=== PATIENT | male | born 1985 | race Caucasian/White ===

== ENCOUNTER → 2020-03-01 07:43 | Outpatient (BNVA) | payer MEDICARE, MEDICAID, SELFPAY | PROVIDERS: Visit Provider Nurse Practitioner Psychiatric/Mental Health | DX: F25.0 Schizoaffective disorder, bipolar type (principal); F60.2 Antisocial personality disorder; F10.21 Alcohol dependence, in remission; F12.21 Cannabis dependence, in remission; F15.21 Other stimulant dependence, in remission; Z87.820 Personal history of traumatic brain injury; F17.210 Nicotine dependence, cigarettes, uncomplicated; F41.1 Generalized anxiety disorder | CPT/HCPCS: 99213 ==

== ENCOUNTER → 2020-03-29 08:21 | Outpatient (BNVA) | payer MEDICARE, MEDICAID, SELFPAY | PROVIDERS: Visit Provider Nurse Practitioner Psychiatric/Mental Health | DX: F25.0 Schizoaffective disorder, bipolar type (principal); F60.2 Antisocial personality disorder; F10.21 Alcohol dependence, in remission; F12.21 Cannabis dependence, in remission; F15.21 Other stimulant dependence, in remission; Z87.820 Personal history of traumatic brain injury; F17.210 Nicotine dependence, cigarettes, uncomplicated | CPT/HCPCS: 99213 ==

== ENCOUNTER 2020-06-13 10:50 | Emergency (ER) | payer MEDICARE, MEDICAID, SELFPAY ==
[2020-06-13 11:00] VITALS: BP 126/84; PULSE 68; RESP 18; TEMP 36.4; O2SAT 97; BMI 26.3
--- NOTE | 2020-06-13 11:15 | XRR_ITS ---
PROCEDURE INFORMATION: Exam: XR Right Foot Complete Exam date and time: 06/13/2020 11:32 AM Age: 34 years old Clinical indication: Injury or trauma; Injury history: Kicking a ball and hit ground with big toe; Initial encounter; Blunt trauma; Foot; Right; Prior surgery TECHNIQUE: Imaging protocol: XR Right foot. Views: 3 or more views. COMPARISON: No relevant prior studies available. FINDINGS: Bones/joints: Suspected nondisplaced fracture involving the proximal aspect of the 1st distal phalanx. Clinical correlation recommended. Surgical hardware in the distal tibia and fibula. Soft tissues: Mild soft tissue swelling about the great toe. Well corticated 3 mm osteophytic density adjacent to the distal aspect of the 1st proximal phalanx. XR/XR foot RT min 3V* [id number] IMPRESSION: Suspected nondisplaced fracture involving the proximal aspect of the 1st distal phalanx. Clinical correlation recommended.
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
[2020-06-13 12:41] VITALS: BP 120/80; PULSE 79; RESP 16; O2SAT 96
== END 2020-06-13 12:41 | disposition home or self-care (01) ==
PROVIDERS: Emergency Provider Nurse Practitioner Family
DX: S99.921A Unspecified injury of right foot, initial encounter (principal); W22.09XA Striking against other stationary object, initial encounter; F17.210 Nicotine dependence, cigarettes, uncomplicated
CPT/HCPCS: 12345; 73630; 99281; 99282; 99283; A6446

== ENCOUNTER → 2020-07-27 10:34 | Outpatient (BNVA) | payer MEDICARE, MEDICAID, SELFPAY | PROVIDERS: Visit Provider Nurse Practitioner Psychiatric/Mental Health | DX: F25.0 Schizoaffective disorder, bipolar type (principal); F60.2 Antisocial personality disorder; F10.21 Alcohol dependence, in remission; F12.21 Cannabis dependence, in remission; F15.21 Other stimulant dependence, in remission; Z87.820 Personal history of traumatic brain injury; F17.210 Nicotine dependence, cigarettes, uncomplicated | CPT/HCPCS: 99214 ==

== ENCOUNTER → 2020-08-24 08:11 | Outpatient (BNVA) | payer MEDICARE, MEDICAID, SELFPAY | PROVIDERS: Visit Provider Nurse Practitioner Psychiatric/Mental Health | DX: F25.0 Schizoaffective disorder, bipolar type (principal); F60.2 Antisocial personality disorder; F10.21 Alcohol dependence, in remission; F12.21 Cannabis dependence, in remission; F15.21 Other stimulant dependence, in remission; Z87.820 Personal history of traumatic brain injury; F41.1 Generalized anxiety disorder | CPT/HCPCS: 99214 ==

== ENCOUNTER → 2020-09-21 09:20 | Outpatient (BNVA) | payer MEDICARE, MEDICAID, SELFPAY | PROVIDERS: Visit Provider Nurse Practitioner Psychiatric/Mental Health | DX: F25.0 Schizoaffective disorder, bipolar type (principal); F60.2 Antisocial personality disorder; F10.21 Alcohol dependence, in remission; F12.21 Cannabis dependence, in remission; F15.21 Other stimulant dependence, in remission; Z87.820 Personal history of traumatic brain injury; F17.210 Nicotine dependence, cigarettes, uncomplicated; F41.1 Generalized anxiety disorder | CPT/HCPCS: 99213 ==

== ENCOUNTER → 2021-02-26 08:08 | Outpatient (BNVA) | payer MEDICARE, MEDICAID, SELFPAY | PROVIDERS: Visit Provider Nurse Practitioner Psychiatric/Mental Health | DX: F25.0 Schizoaffective disorder, bipolar type (principal); F60.2 Antisocial personality disorder; F10.21 Alcohol dependence, in remission; F12.21 Cannabis dependence, in remission; F15.21 Other stimulant dependence, in remission; Z87.820 Personal history of traumatic brain injury; F17.210 Nicotine dependence, cigarettes, uncomplicated; Z79.899 Other long term (current) drug therapy | CPT/HCPCS: 99214 ==

== ENCOUNTER → 2021-04-04 08:11 | Outpatient (BNVA) | payer MEDICARE, MEDICAID, SELFPAY | PROVIDERS: Visit Provider Nurse Practitioner Psychiatric/Mental Health | DX: F25.0 Schizoaffective disorder, bipolar type (principal); F60.2 Antisocial personality disorder; F12.20 Cannabis dependence, uncomplicated; F10.21 Alcohol dependence, in remission; F15.21 Other stimulant dependence, in remission; Z87.820 Personal history of traumatic brain injury; F17.210 Nicotine dependence, cigarettes, uncomplicated | CPT/HCPCS: 99214 ==

== ENCOUNTER 2025-09-15 12:42 | Inpatient (IN) | payer MEDICARE, SELFPAY ==
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
[2025-09-15 12:45] VITALS: BP 145/91; PULSE 120; RESP 18; TEMP 36.9; O2SAT 99; BMI 24.3
--- OUTSIDE RECORDS SUMMARY | 2025-09-15 13:02 | XMS_ITS | Clinical Summary ---
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 2 Active propranoloL (Inderal) 10 mg tablet Take 10 mg by mouth 1 (one) time each day. 2 Active HYDROcodone-acetami nophen (Jackson) 5-325 mg tablet Take 1 tablet by mouth every 6 (six) hours if needed for severe pain (7-10) for up to 6 doses. 10 tablet 2 Active Social History Tobacco Use Types Packs/Day Years Used Date Smoking Tobacco: Every Day Smokeless Tobacco: Never Sex and Gender Information Value Date Recorded Sex Assigned at Not on file Legal Sex Male 10:38 AM CDT Gender Identity Not on file Sexual Orientation Not on file Last Filed Vital Signs Vital Sign Reading Time Taken Comments Blood Pressure 119/69 02/28/2022 10:41 AM CDT Pulse 68 02/28/2022 10:41 AM CDT Temperature 36.8 C (98.2 F) 02/28/2022 10:41 AM CDT Respiratory Rate 18 02/28/2022 10:41 AM CDT Oxygen Saturation 100% 02/28/2022 10:41 AM CDT Inhaled Oxygen Concentration - - Weight 83.9 kg (185 lb) 02/28/2022 10:41 AM CDT Height 182.9 cm (6') 02/28/2022 10:41 AM CDT Body Mass Index 25.09 02/28/2022 10:41 AM CDT Plan of Treatment Health Maintenance Due Date Last Done Comments Lipid Panel 1984 MMR Vaccines (1 of 1 - Stand kiran series) 1985 Varicella Vaccines (1 of 2 - 13+ 2-dose series) 1997 Depression Screening 2002 Social Drivers of Health (SDoH) 2002 Hepatitis B Vaccines (1 of 3 - 19+ 3-dose series) 2003 DTaP,Tdap,and Td Vaccines (2 - Td or Tdap) 03/23/2008 02/24/2008 HPV Vaccines (1 - 3-dose SCD M series) 2011 COVID-19 Vaccine (1 - 2023-2 5 season) 2025 Influenza Vaccine (#1) 2025 Pneumococcal Vaccine: 50+ Ye ars (1 of 1 - PCV) 2034 Zoster Vaccines (1 of 2) 2034 RSV Vaccines (1 - 1-dose 75+ series) 2059 HIB Vaccines Aged Out No longer eligi ble based on patient's age to complete this topic Hepatitis A Vaccines Aged Out No long er eligible based on patient's age to complete this topic IPV Vaccines Aged Out No longer eligi ble based on patient's age to complete this topic Meningococcal B Vaccine Aged Out No l onger eligible based on patient's age to complete this topic Meningococcal Vaccine Aged Out No trent elgin eligible based on patient's age to complete this topic Pneumococcal Vaccine Aged Out No long er eligible based on patient's age to complete this topic Rotavirus Vaccines Aged Out No longer eligible based on patient's age to complete this topic Insurance [employer] MEDICARE HMO [facility]
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
--- OUTSIDE RECORDS SUMMARY | 2025-09-15 13:03 | XMS_ITS | Clinical Summary ---
Author Organization [facility] Address [address] [place] [address] Phone Care Team Providers Care Section Beamer Name Role Phone Unavailable Primary Care Provider Unavailabl e Allergies No known active allergies Medications divalproex delayed release (DEPAKOTE) 500 mg Tablet, Delayed Release (E.C.) Take 500 mg by mouth. One tab AM, two tabs PM Active OLANZapine (ZYPREXA) 15 mg tablet Take 15 mg by mouth daily at bedtime. Active QUEtiapine (SEROQUEL) 25 mg tablet Take 25 mg by mouth 3 times daily as needed. anxiety Active tiZANidine (ZANAFLEX) 4 mg Tablet Take 1 Tablet (4 mg) by mouth every 8 hours as needed for Spasm. 30 Tablet 0 07/31/2016 Active traMADol-acetam inophen (ULTRACET) 37.5-325 mg tablet TAKE 1-2 TABLETS BY MOUTH EVERY 8 HOURS NEEDED FOR PAIN 90 Tablet 11/08/2016 Active traMADol (ULTRAM ER) 200 mg Extended Release 24 hour tablet Take 1 Tablet (200 mg) by mouth daily. 30 Tablet 5 04/08/2017 Active traMADol (ULTRAM) 50 mg tablet TAKE 2 TABLETS BY MOUTH EVERY 6 HOURS NEEDED FOR PAIN. TO BE TAKEN UNTIL ULTRAM ER AUTHORIZED. 90 Tablet 04/23/2017 Active nabumetone (RELAFEN) 750 mg tablet Take 1 Tablet (750 mg) by mouth 2 times daily. 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 Gender Identity Not on file Sexual Orientation Not on file Occupation Industry Job Start Date Job End Date Not on file Not on file Not on file Not on file Last Filed Vital Signs Vital Sign Reading Time Taken Comments Blood Pressure 100/62 04/08/2017 10:44 AM CDT Pulse 102 04/08/2017 10:44 AM CDT Temperature 36.9 C (98.4 F) 04/08/2017 10:44 AM CDT Respiratory Rate 20 04/08/2017 10:44 AM CDT Oxygen Saturation 98% 04/08/2017 10:44 AM CDT Inhaled Oxygen Concentration - - Weight 75.3 kg (166 lb) 04/08/2017 10:44 AM CDT Height 182.9 cm (6') 04/08/2017 10:44 AM CDT Body Mass Index 22.51 04/08/2017 10:44 AM CDT Plan of Treatment Health Maintenance Due Date Last Done Comments DTAP/TDAP/TD VACCINES (1 - Tdap) 2003 HEPATITIS B VACCINES (1 of 3 - 19+ 3-dose series) 10/25 HPV VACCINES (1 - 3-dose SCDM series) 2011 INFLUENZA VACCINE (#1) 2025 Medical Devices Implanted Type Area Life Skills Trainer Device Identifier Shelf Expiration Date Model / Serial / Lot [employer] Knotless Tightrope Syndesmosis Repair Implant, Stainless Steel [id number] Implanted:Qty: 1 on 09/12/2014 at [place] [id number] Other Right: Ankle [employer] 04/24/2019 [id number] / / [id number] Plate-T Lcp Oblique 5hole Rt 241.051 - [id number] Implanted:Qty: 1 on 09/12/2014 by Lio Ahuja DO at [place] [id number] Plate Right: Ankle [employer]AT[employer] 241.051 / / Screw St 3.5x14mm 204.814 - [id number] Implanted:Qty: 1 on 09/12/2014 by Lio Ahuja DO at [facility] [address] Screw Right: Ankle [employer] 204.814 / / Screw St 3.5x16mm 204.816 - [id number] Implanted:Qty: 2 on 09/12/2014 by Lio Ahuja DO at [facility] [address] Screw Right: Ankle [employer] 204.816 / / Screw Canc Pt 4x40mm 207.040 - [id number] Implanted:Qty: 1 on 09/12/2014 by Lio Ahuja DO at [facility] [address] Right: Ankle [employer] 207.040 / / Insurance MEDICARE PART A AND B [place] Advance Directives For more information, please contact: [phone] * Full Code (Latest Code Status on File) Date Activated Date Inactivated Comments 09/12/2014 4:02 PM 09/12/2014 6:35 PM * Full Code Date Activated Date Inactivated Comments 09/12/2014 1:10 PM 09/12/2014 4:02 PM * Full Code Date Activated Date Inactivated Comments 09/12/2014 12:32 PM 09/12/2014 1:10 PM
--- OUTSIDE RECORDS SUMMARY | 2025-09-15 13:03 | XMS_ITS | Encounter Summary ---
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 de Phone Number INTERFACE SYSTEM Refer to clinic/hospital department [facility] CLIA# [id number] [address] [place] [address] * (ABNORMAL) PT AND APTT (11/12/2008 5:17 AM CLEANER) PTT 37.2(H) 22.5 - 36.5 Secs [facility] Comment: Therapeutic Range: Hi-level PE/DVT heparin protocol 80.1 -95.0 sec Lo-level PE/DVT heparin protocol 67.1 - 80.0 sec Cardiac Heparin Protocol 67.1 - 85.0 sec Neuro Heparin Protocol 67.1 - 80.0 sec As of 02/11/2008 note change in APTT Normal Range. INR 1.2 [facility] Comment: Expected Values for INR: DVT/PE Goal INR 2.5; range 2.0 - 3.0 Valve Replacement Tissue Goal INR 2.5; range 2.0 - 3.0 Mechanical Goal INR 3.0; range 2.5 - 3.5 POST-TN Goal INR 2.5; range 2.0 - 3.0 or Goal 3.0; range 2.5 - 3.5 Atrial Fibrillation Goal INR 2.5; range 2.0 - 3.0 Ischemic Stroke Goal INR 2.5; range 2.0 - 3.0 For additional information see Guidelines for Anticoagulation available from the pharmacy [facility]. [phone] PROTIME 16.7(H) 12.8 - 15.8 Secs [facility] Comment:As of 2007 not e change in normal range. Blood specimen (specimen) 11/12/2008 5:17 AM CLEANER 11/12/2008 5:30 AM CLEANER us Patrick Chavarria MD HEMATOLOGY ORDERABLES Edite d Performing Organization Address [facility] de Phone Number INTERFACE SYSTEM Refer to clinic/hospital department [facility] CLIA# [id number] [address] [place] [address] * MRSA CULTURE (11/12/2008 2:35 AM CLEANER) FINAL REPORT Culture screen for MRSA negative INTERFACE SYSTEM ANTERIOR NARES SWAB / Unknown 11/12/2008 2:35 AM CLEANER 11/12/2008 7:36 AM CLEANER Patrick Chavarria MD MICROBIOLOGY - GENERAL ADELINE WALKER Final Result INTERFACE SYSTEM Refer to clinic/hospital department * (ABNORMAL) POC BLOOD GAS, LYTES AND H+H (11/12/2008 12:03 AM CLEANER) TCO2 (CALC) POC 28(H) 23 - 27 mmol/l [facility] HEMOGLOBIN POC 11.6 +/-3 g/dL 13.5 - 18.0 g/dL [facility] PH TEMP CORRECT 7.36 7.35 - 7.45 Unit [facility] HEMATOCRIT ABG 34(L) 38 - 51 % [facility] HCO3 26.6(H) 22.0 - 26.0 mmol/l [facility] CALCIUM IONIZED 1.06(L) 1.12 - 1.32 mmol/l [facility] FIO2 100 [facility] PO2 541(H) 80 - 105 mmHg [facility] SODIUM 133(L) 138 - 146 mEq/L [facility] PCO2 47(H) 35 - 45 mmHg [facility] BASE EXCESS 1 -2 - 3 mmol/l [facility] O2 SATURATION 100(H) 95 - 98 % [facility] PH 7.36 7.35 - 7.45 Unit [facility] PO2 TEMP CORRECT 541(H) 80 - 105 mmHg [facility] POTASSIUM 4.3 3.5 - 4.9 mEq/L [facility] SPECIMEN TYPE Arterial [facility] Comment: Test Performed By [id number] Hemoglobin calculated from Hematocrit result PCO2 TEMP CORRECT 47(H) 35 - 45 mmHg [facility] Arterial blood specimen (specimen) 11/12/2008 12:03 AM CLEANER 11/12/2008 12:08 AM CLEANER Saad Florez MD POINT OF CARE TESTING COM Final Result Performing Organization Address [facility] Phone Number INTERFACE SYSTEM Refer to clinic/hospital department [facility] CLIA#[id number] [address] [place] [address] * ANTIBODY SCREEN (11/11/2008 10:46 PM CLEANER) ANTIBODY SCREEN Negative [facility] Blood specimen (specimen) 11/11/2008 10:46 PM CLEANER 11/11/2008 10:46 PM CLEANER Saad Florez MD BLOOD BANK ORDERABLES Edit ed Performing Organization Address [facility] Phone Number INTERFACE SYSTEM Refer to clinic/hospital department [facility] CLIA# [id number] [address] [place] [address] * ABORH TYPING (11/11/2008 10:46 PM CLEANER) ABO/RH TYPE O Positive [facility] Blood specimen (specimen) 11/11/2008 10:46 PM CLEANER 11/11/2008 10:46 PM CLEANER Saad Florez MD BLOOD BANK ORDERABLES Darcie l Result Performing Organization Address [facility] Phone Number INTERFACE SYSTEM Refer to clinic/hospital department [facility] CLIA# [id number] [address] [place] [address] * PROTIME-INR (11/11/2008 10:25 PM CLEANER) INR 1.0 [facility] Comment: Expected Values for INR: DVT/PE Goal INR 2.5; range 2.0 - 3.0 Valve Replacement Tissue Goal INR 2.5; range 2.0 - 3.0 Mechanical Goal INR 3.0; range 2.5 - 3.5 POST-TN Goal INR 2.5; range 2.0 - 3.0 or Goal 3.0; range 2.5 - 3.5 Atrial Fibrillation Goal INR 2.5; range 2.0 - 3.0 Ischemic Stroke Goal INR 2.5; range 2.0 - 3.0 For additional information see Guidelines for Anticoagulation available from the pharmacy [facility] [phone] PROTIME 14.8 12.8 - 15.8 Secs [facility] Comment:As of 2007 not e change in normal range. Blood specimen (specimen) 11/11/2008 10:25 PM CLEANER 11/11/2008 10:25 PM CLEANER Saad Florez MD HEMATOLOGY ORDERABLES Darcie l Result Performing Organization Address [facility] Phone Number INTERFACE SYSTEM Refer to clinic/hospital department [facility] CLIA# [id number] [address] [place] [address] * ETHANOL LEVEL (11/11/2008 10:25 PM CLEANER) ETHANOL % <0.010 <=0.010 % [facility] ETHANOL <10 <=10 mg/dL [facility] Blood specimen (specimen) 11/11/2008 10:25 PM CLEANER 11/11/2008 10:25 PM CLEANER Saad Florez MD CHEMISTRY ORDERABLES Final Result Performing Organization Address [facility] Phone Number INTERFACE SYSTEM Refer to clinic/hospital department [facility] CLIA# [id number] [address] [place] [address] * (ABNORMAL) CBC WITH DIFFERENTIAL (11/11/2008 10:25 PM CLEANER) LYMPHOCYTES 5.6(L) 24.0 - 44.0 % [facility] MCV 88.8 84.0 - 103.0 Fl [facility] LYMPHOCYTE ABSOLUTE 0.7(L) 1.2 - 4.0 K/ul [facility] MPV 9.8 8.9 - 12.8 Fl [facility] HEMOGLOBIN 13.4(L) 14.0 - 18.0 g/dL [facility] MONOCYTES 12.9(H) 2.0 - 10.0 % [facility] RDW 13.4 11.0 - 14.5 % [facility] WBC 12.1(H) 4.5 - 11.0 K/ul [facility] NEUTROPHILS 81.5(H) 42.2 - 75.2 % [facility] MCH 30.0 27.0 - 34.0 pg [facility] MONOCYTE ABSOLUTE 1.6(H) 0.1 - 0.6 K/ul [facility] HEMATOCRIT 39.6(L) 41.0 - 53.0 % [facility] PLATELETS 197 140 - 440 K/ul [facility] NEUTROPHIL ABSOLUTE 9.9(H) 2.0 - 8.0 K/ul [facility] RBC 4.46(L) 4.60 - 6.20 Mil/ul [facility] MCHC 33.8 30.0 - 35.0 g/dL [facility] Blood specimen (specimen) 11/11/2008 10:25 PM CLEANER 11/11/2008 10:25 PM CLEANER us Saad Florez MD HEMATOLOGY ORDERABLES Darcie vera Result INTERFACE SYSTEM Refer to clinic/hospital department [facility] CLIA# [id number] [address] [place] [address] * (ABNORMAL) BASIC METABOLIC PANEL (11/11/2008 10:25 PM CLEANER) SODIUM 137 136 - 145 mEq/L [facility] ANION GAP 10 9 - 20 mEq/L [facility] BUN 12 9 - 20 mg/dL [facility] CO2 28 22 - 32 mmol/l [facility] OSMOLALITY, CALCULATED 284 275 - 295 mOsm/Kg [facility] POTASSIUM 4.0 3.5 - 5.0 mEq/L [facility] CREATININE 1.0 0.7 - 1.5 mg/dL [facility] CALCIUM 9.6 8.4 - 10.5 mg/dL [facility] GLUCOSE 129(H) 70 - 110 mg/dL [facility] CHLORIDE 103 95 - 110 mEq/L [facility] Blood specimen (specimen) 11/11/2008 10:25 PM CLEANER 11/11/2008 10:25 PM CLEANER us Saad Florez MD CHEMISTRY ORDERABLES Final Result Performing Organization Address City/State/[facility] Co de Phone Number INTERFACE SYSTEM Refer to clinic/hospital department [facility] CLIA# [id number] [address] [place] [address] documented in this encounter Visit Diagnoses Not on filedocumented in this encounter 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
--- NOTE | 2025-09-15 13:29 | PC.PHAR ---
Pt states he used to take Xanax and needed a refill. His pharmacy [place], [place] permanently closed. The only records transferred to [facility], were the 2 Olanzapine prescriptions. No records found for Xanax. 09/15/25
[2025-09-15 13:33] LABS: Glucose Urine UA Negative (Normal); Nitrate Urine Negative (Negative); Specific Gravity, Urine 1.013 (1.005-1.030)
[2025-09-15 13:35] LABS: Hematocrit 42.3 % (37-53); Hemoglobin 13.60 g/dL (11.27-16.99); Mean Corpuscular HGB Conc 32.2 g/dL (30-55); Mean Corpuscular Hemoglobin 28.8 pg (27-33); Mean Corpuscular Volume 89.6 fl (82-101); Nucleated Red Blood Cells % 0 %; Platelet Count 198 10^3/cmm (157-399); Red Blood Count 4.72 10^6/uL (3.85-5.65); White Blood Count 9.14 10^3/uL (3.29-11.43)
[2025-09-15 13:35] LABS: Add Urine Microscopic? YES
[2025-09-15 13:40] LABS: PCP Screen Urine Negative (Negative)
[2025-09-15 14:01] LABS: Respiratory Syncytial Virus Ce NEGATIVE (Negative); SARS-CoV-2 PCR NEGATIVE (Negative)
[2025-09-15 14:04] LABS: Acetaminophen < 5.0 ug/mL (10-30); Alanine Aminotransferase 74 U/L (0-41); Albumin Level 4.2 g/dL (3.5-5.2); Alcohol Level < 10 mg/dL (0-10); Alkaline Phosphatase 99 U/L (40-130); Anion Gap 18.3 (5-19); Aspartate Amino Transferase 33 U/L (0-40); Blood Urea Nitrogen 14 mg/dL (6-20); Calcium 9.4 mg/dL (8.5-10.5); Carbon Dioxide 26 mmol/L (22-29); Chloride 102 mmol/L (98-107); Creatinine Clr Calc Pharmacy 182.9565; Globulin 2.1 g/dL (1.3-4.6); Glucose 176 mg/dL (65-115); Osmolality Calculated 299 mOsm/kg (285-295); Potassium 4.3 mmol/L (3.5-5.1); Salicylate < 0.3 mg/dL (3-10); Sodium 142 mmol/L (136-145); Thyroid Stimulating Hormone 1.64 uIU/mL (0.27-4.20); Total Protein 6.3 g/dL (6.6-8.7)
[2025-09-15 14:53] VITALS: BP 137/83; PULSE 100; RESP 20; TEMP 37; O2SAT 98
--- NOTE | 2025-09-15 15:24 | PC.NURSE ---
Pt was read his 96 hour hold rights at 1255. Security was present
--- NOTE | 2025-09-15 17:43 | ECG_ITS ---
[employer] Test Date: 2025-09-15 Pat Name: Adrian Chávez Department: Room: 131 Gender: Male Retail Aide: : 1985 Requested By: Liudmila Acevedo Order Number: [id number] Sanchez MD: Alexus Deng M.D. Measurements Intervals [place] Rate: 96 P: 36 [place]: 131 QRS: 71 QRSD: 110 T: 64 QT: 357 QTc: 453 Interpretive Statements SINUS RHYTHM INCOMPLETE RIGHT BUNDLE BRANCH BLOCK [90+ ms QRS DURATION, TERMINAL R IN V1/V2, 40+ ms S IN I/aVL/V4/V5/V6] Compared to ECG 12/14/2021 01:09:48 No significant changes Electronically Signed On 09-16-2025 15:24:58 CDT by Alexus Deng M.D. [email or web address]
[2025-09-15 20:23] VITALS: BP 104/61; PULSE 89; RESP 18; TEMP 36.7; O2SAT 97
[2025-09-16 06:00] VITALS: BP 131/73; PULSE 89; RESP 16; TEMP 36.4; O2SAT 95
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
[2025-09-16 14:00] VITALS: BP 130/76; PULSE 88; RESP 16
[2025-09-16 19:58] VITALS: BP 128/78; PULSE 90; RESP 14; TEMP 36.3; O2SAT 97
[2025-09-17 06:00] VITALS: BP 101/64; PULSE 70; RESP 15; TEMP 36.4; O2SAT 98
[2025-09-17] MEDS: divalproex ER 500 mg Tablet (24H) 1000 MG PO (08:18)
--- NOTE | 2025-09-17 11:29 | P.NPUPN_ITS ---
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 He had continued to minimize any of these problems currently. He had reported that he felt better here. He had stated that he had been hopeful about returning back to living at home with his family. He had denied any hallucinations at this time. He had denied any racing thoughts. He had been compliant with his medications and appeared somewhat isolative on the milieu. He had reported adequate sleep last night. Mental Status Exam 2 MSE Comments: The patient is a casually dressed male with limited hygiene and a normal gait. There was no evidence of any abnormal involuntary motor movements, tics, or tremors. His speech was regular in regards to volume and monotone in quality with no articulation deficits appreciated and spontaneous. He appeared disinterested on interview today. His thought process was linear, logical, and goal-directed. His mood was described as a little better. His affect was somewhat flat with diminished range. He denied any homicidal or suicidal ideation. There was no evidence of any delusional thinking. He did not appear to be responding to internal stimuli. His attention span appeared poor. He was alert and oriented to person, place,time, and situation. His insight is poor. His judgment appeared poor. His impulse control appeared limited. His recent and remote memory were at baseline. Vitals/I&O/Wt Last Vital Signs Temp 97.6 F 09/17/25 06:00 Pulse 70 09/17/25 06:00 Resp 15 09/17/25 06:00 BP 101/64 09/17/25 06:00 Pulse Ox 98 09/17/25 06:00 O2 Del Method Room Air 09/17/25 06:00 Weight last 48 hrs Weight 81.193 kg Data NPU 09/15/25 13:09 09/15/25 13:09 A&P Assessment and plan 1. Schizoaffective disorder, bipolar type: 2. Homicidal ideation: 3. Antisocial personality disorder in adult: Plan: 39-year-old male history of traumatic brain injury along with a prior diagnosis of schizoaffective disorder admitted involuntarily with homicidal ideation for which the patient doubt now denies. He also has a history of polysubstance abuse including methamphetamine abuse which may be complicating the situation. #1.? Engage patient in individual milieu and group therapy. #2?? Recommend sober living treatment at the highest level of care to which the patient is willing to commit #3??? Continue Depakote ER 1000mg daily. Continue zyprexa at 10mg at night. ? #4?? TO-15 minute checks? #5?? Will attempt to gather collateral information PDMP PDMP Reviewed: Not Reviewed Involuntary Hold Information 2 Hold Status: Legal Status: 96 Hour Hold Date/Time Hold Expires: 09/21/2025 @ 1245 Attestations NPU 2 Medical Necessity Statement*: Inpatient hospitalization is medically necessary and deemed to ?be ?the clinically appropriate intervention ?at this time.? We will monitor/initiate medications and make changes as indicated.?The patient?s likely length of stay 3-5 days. Coding Level of Care Code Acute Code for [facility] Fwd Diagnoses Schizoaffective disorder, bipolar type F25.0 Homicidal ideation R45.850 Antisocial personality disorder in adult F60.2
[2025-09-17 13:34] VITALS: BP 106/66; PULSE 112; RESP 16; TEMP 36.9; O2SAT 96
--- NOTE | 2025-09-17 15:38 | PC.NURSE ---
Per Dr. Nazario verbal order consult was put in for Laine.
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
[2025-09-17 17:45] LABS: Hematocrit 43.0 % (37-53); Hemoglobin 13.40 g/dL (11.27-16.99); Mean Corpuscular HGB Conc 31.2 g/dL (30-55); Mean Corpuscular Hemoglobin 28.5 pg (27-33); Mean Corpuscular Volume 91.5 fl (82-101); Nucleated Red Blood Cells % 0 %; Platelet Count 197 10^3/cmm (157-399); Red Blood Count 4.70 10^6/uL (3.85-5.65); White Blood Count 6.95 10^3/uL (3.29-11.43)
[2025-09-17 18:07] LABS: Alanine Aminotransferase 49 U/L (0-41); Albumin Level 4.0 g/dL (3.5-5.2); Alkaline Phosphatase 95 U/L (40-130); Anion Gap 16.0 (5-19); Aspartate Amino Transferase 21 U/L (0-40); Blood Urea Nitrogen 17 mg/dL (6-20); Calcium 9.2 mg/dL (8.5-10.5); Carbon Dioxide 26 mmol/L (22-29); Chloride 102 mmol/L (98-107); Creatinine Clr Calc Pharmacy 137.2174; Globulin 2.3 g/dL (1.3-4.6); Glucose 93 mg/dL (65-115); Osmolality Calculated 291 mOsm/kg (285-295); Potassium 4.0 mmol/L (3.5-5.1); Sodium 140 mmol/L (136-145); Total Protein 6.3 g/dL (6.6-8.7)
[2025-09-17 20:16] VITALS: BP 117/70; PULSE 93; RESP 18; TEMP 36.7; O2SAT 96
[2025-09-18 06:00] VITALS: BP 119/71; PULSE 88; RESP 15; TEMP 36.6; O2SAT 96
[2025-09-18] MEDS: divalproex ER 500 mg Tablet (24H) 1000 MG PO (08:42)
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
--- NOTE | 2025-09-18 09:02 | CTR_ITS ---
PROCEDURE INFORMATION: Exam: CTA Chest With Contrast Exam date and time: 09/18/2025 12:41 PM Age: 39 years old Clinical indication: Other: Right chest mass TECHNIQUE: Imaging protocol: Computed tomographic angiography of the chest with contrast. Exam focused on the arteries. 3D rendering (Not supervised by radiologist): MIP and/or 3D reconstructed images were created by the technologist. Radiation optimization: All CT scans at this facility use at least one of these dose optimization techniques: automated exposure control; mA and/or kV adjustment per patient size (includes targeted exams where dose is matched to clinical indication); or iterative reconstruction. Contrast material: OMNI 350; Contrast volume: 80 ml; Contrast route: INTRAVENOUS (IV); COMPARISON: US soft tissue/extremity [id number] 09/18/2025 7:26 AM RADIATION DOSE METRICS: Total DLP (mGy-cm): 371.5 FINDINGS: Pulmonary arteries: Normal. No pulmonary emboli. Aorta: The thoracic aorta is normal in caliber without aneurysm or dissection. No definite calcified plaque noted involving the coronary vessels. Lungs: Unremarkable. No consolidation. No masses. Pleural spaces: Unremarkable. No pneumothorax. No pleural effusion. Heart: Unremarkable. No cardiomegaly. No pericardial effusion. Lymph nodes: Unremarkable. No enlarged lymph nodes. Bones/joints: No acute bony abnormalities are appreciated. Soft tissues: There is a soft tissue mass adjacent to the right clavicle measuring 2.6 x 2.3 cm in size (series 6, image 3). CT/CT angio chest [id number] IMPRESSION: 1. Right Candi clavicular soft tissue mass. Exact etiology is uncertain. Biopsy will likely be necessary for a definitive diagnosis.
[2025-09-18] MEDS: iohexol 350 mg/mL 500 mL Btl (per mL) IV ×2 (12:59→13:00)
[2025-09-18 13:40] VITALS: BP 126/77; PULSE 97; RESP 16; TEMP 36.4; O2SAT 97
--- NOTE | 2025-09-18 13:58 | P.NPUPN_ITS ---
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 The patient had been pleasant and cooperative on the milieu. He had reported that he was feeling calmer. He did not endorse any thoughts of hurting self or others and stated he was hopeful about going home tomorrow. He reported no side effects from his medication regimen. He had expressed some concern about the mass seen in his chest but was willing to have further evaluation from the medical team. He reported adequate sleep. He had denied having any racing thoughts or any feelings of hopelessness. Mental Status Exam 2 MSE Comments: The patient is a casually dressed male with limited hygiene and a normal gait. There was no evidence of any abnormal involuntary motor movements, tics, or tremors. His speech was regular in regards to volume and monotone in quality with no articulation deficits appreciated and spontaneous. His thought process was linear, logical, and goal-directed. His mood was described as a good. His affect was brighter today. He denied any homicidal or suicidal ideation. There was no evidence of any delusional thinking. He did not appear to be responding to internal stimuli. His attention span appeared poor. He was alert and oriented to person, place,time, and situation. His insight is poor. His judgment appeared to be improving. His impulse control appeared fair. His recent and remote memory were at baseline. Vitals/I&O/Wt Last Vital Signs Temp 97.5 F L 09/18/25 13:40 Pulse 97 09/18/25 13:40 Resp 16 09/18/25 13:40 BP 126/77 09/18/25 13:40 Pulse Ox 97 09/18/25 13:40 O2 Del Method Room Air 09/18/25 13:40 Weight last 48 hrs Weight 82.282 kg Data NPU 09/17/25 17:25 09/17/25 17:25 A&P Assessment and plan 1. Schizoaffective disorder, bipolar type: 2. Homicidal ideation: 3. Antisocial personality disorder in adult: Plan: 39-year-old male history of traumatic brain injury along with a prior diagnosis of schizoaffective disorder admitted involuntarily with homicidal ideation for which the patient doubt now denies. He also has a history of polysubstance abuse including methamphetamine abuse which may be complicating the situation. #1.? Engage patient in individual milieu and group therapy. #2?? Recommend sober living treatment at the highest level of care to which the patient is willing to commit #3??? Continue Depakote ER 1000mg daily. Continue zyprexa at 10mg at night. ?Will obtain labs including AM Depakote level, cbc with diff, LFT in am. ? #4?? TO-15 minute checks? #5?? Will attempt to gather collateral information PDMP PDMP Reviewed: Not Reviewed Involuntary Hold Information 2 Hold Status: Legal Status: 96 Hour Hold Date/Time Hold Expires: 09/21/2025 @ 1245 Attestations NPU 2 Medical Necessity Statement*: Inpatient hospitalization is medically necessary and deemed to ?be ?the clinically appropriate intervention ?at this time.? We will monitor/initiate medications and make changes as indicated.?The patient?s likely length of stay 1-2 days. Coding Level of Care Code Acute Code for g Fwd Diagnoses Schizoaffective disorder, bipolar type F25.0 Homicidal ideation R45.850 Antisocial personality disorder in adult F60.2
--- NOTE | 2025-09-18 16:23 | USR_ITS ---
PROCEDURE INFORMATION: Exam: US Right Limited Joint or Other Non-Vascular Extremity Structure Exam date and time: 09/18/2025 7:26 AM Age: 39 years old Clinical indication: Mass or lump; Shoulder; Right; Additional info: Right chest, mass TECHNIQUE: Imaging protocol: US right limited joint or other nonvascular extremity structure. Real-time ultrasound with image documentation. Exam focused on the area of clinical interest. COMPARISON: No relevant prior studies available. FINDINGS: Soft tissues: U the area of palpable abnormality represents a complex mass measuring 2.8 x 2.2 x 1.8 cm in size. There is mild internal vascularity. It is fairly well circumscribed. Exactly what this represents is unknown. Further investigation could include CT or MRI. US/US soft tissue/extremity [id number] IMPRESSION: 2.8 cm heterogeneous mass, etiology unknown.
[2025-09-18 22:00] VITALS: BP 124/78; PULSE 113; RESP 20; TEMP 36.6; O2SAT 94
[2025-09-19 06:00] VITALS: BP 112/75; PULSE 86; RESP 16; TEMP 36.6; O2SAT 99
[2025-09-19 07:53] LABS: Hematocrit 43.4 % (37-53); Hemoglobin 13.70 g/dL (11.27-16.99); Mean Corpuscular HGB Conc 31.6 g/dL (30-55); Mean Corpuscular Hemoglobin 28.5 pg (27-33); Mean Corpuscular Volume 90.2 fl (82-101); Platelet Count 193 10^3/cmm (157-399); Red Blood Count 4.81 10^6/uL (3.85-5.65); White Blood Count 6.07 10^3/uL (3.29-11.43)
[2025-09-19 08:16] LABS: Alanine Aminotransferase 44 U/L (0-41); Albumin Level 4.2 g/dL (3.5-5.2); Alkaline Phosphatase 95 U/L (40-130); Aspartate Amino Transferase 20 U/L (0-40); Globulin 1.7 g/dL (1.3-4.6); Total Protein 5.9 g/dL (6.6-8.7)
--- NOTE | 2025-09-19 08:30 | P.PN_ITS ---
Subjective 2 Subjective: This is a progress note from 09/18/2025, patient was seen, alert oriented x 2, following all commands, discussed his right periclavicular soft tissue mass, he will need to follow-up with general surgery as outpatient for consideration of biopsy, he voiced understanding, all questions answered Vitals/I&O/Wt Last Vital Signs Temp 97.9 F 09/19/25 06:00 Pulse 86 09/19/25 06:00 Resp 16 09/19/25 06:00 BP 112/75 09/19/25 06:00 Pulse Ox 99 09/19/25 06:00 O2 Del Method Room Air 09/19/25 06:00 Weight last 48 hrs Weight 82.282 kg Physical Exam 2 Const: COMMON NORMALS: no acute distress Resp: COMMON NORMALS: normal respiratory effort, No retractions, No use of accessory muscles and clear to auscultation bilaterally AUSCULTATION: clear to auscultation bilaterally Cardio: COMMON NORMALS: regular rate, regular rhythm, S1 normal heart sound present and S2 normal heart sound present RATE: regular rate RHYTHM: r egular rhythm HEART SOUNDS: S1 normal heart sound present and S2 normal heart sound present GI: COMMON NORMALS: Normal to inspection, nondistended, normoactive bowel sounds present and non-tender Extremity: COMMON NORMALS: no pedal edema Psych: COMMON NORMALS: mental status grossly normal Skin: NARRATIVE SKIN EXAM: Right clavicular mass, measuring 3 x 3 cm, Data 09/19/25 07:37 09/17/25 17:25 A&P Assessment and plan 1. Chest mass: Plan: - Right chest mass - Ultrasound chest US/US soft tissue/extremity [id number] IMPRESSION: 2.8 cm heterogeneous mass, etiology unknown. - Will consider further imaging based on clinical progress CT/CT angio chest [id number] IMPRESSION: 1. Right Candi clavicular soft tissue mass. Exact etiology is uncertain. Biopsy will likely be necessary for a definitive diagnosis. CT/CT angio chest [id number] IMPRESSION: 1. Right Candi clavicular soft tissue mass. Exact etiology is uncertain. Biopsy will likely be necessary for a definitive diagnosis. - Will refer to general surgery for biopsy PDMP PDMP Reviewed: Not Reviewed Attestations 2 Medical Necessity Statement*: Requires hospitalization for right pericervical soft tissue mass Diagnoses Chest mass R22.2
[2025-09-19 08:58] LABS: Absolute Segmented Neutrophil 2.5 10/cmm (1.6-7.1); Atypical Lymphs 0.0 % (0-5); Band Neutrophils Absolute 0.0 10^3/cmm (0.0-1.2); Total Cells Counted 100 (0-100)
[2025-09-19 08:59] LABS: Giant Platelets Trace
[2025-09-19] MEDS: divalproex ER 500 mg Tablet (24H) 1000 MG PO (09:10)
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
[2025-09-19 13:16] VITALS: BP 112/75; PULSE 86; RESP 16; TEMP 36.6; O2SAT 99
--- NOTE | 2025-09-19 13:16 | DCPLANNER ---
IMM completed 09/19/2025 @ 1:16pm. Pt was given a copy of his rights.
== END 2025-09-19 13:40 | disposition home or self-care (01) | DRG 885 ==
LOC: ER 14:02 → NP 14:16
PROVIDERS: Family Medicine; Admitting Provider Psychiatry & Neurology Psychiatry; Emergency Provider Emergency Medicine; Visit Provider Psychiatry & Neurology Psychiatry
DX: F25.0 Schizoaffective disorder, bipolar type (principal); R45.851 Suicidal ideations; R45.850 Homicidal ideations; F60.2 Antisocial personality disorder; F15.11 Other stimulant abuse, in remission; F17.200 Nicotine dependence, unspecified, uncomplicated; Z87.820 Personal history of traumatic brain injury; F10.11 Alcohol abuse, in remission; R22.2 Localized swelling, mass and lump, trunk
CPT/HCPCS: 36415; 70491; 71275; 76882; 80053; 80076; 80164; 80306; 80307; 81001; 84443; 85007; 85025; 85027; 85651; 87637; 93005; 97150; 97165; 99285; J9999